=== PATIENT | female | born 1980 | race Hispanic/Latino ===

== ENCOUNTER 2023-02-24 13:31 | Inpatient (IN) | payer OTHER ==
[2023-02-24 14:22] LABS: Bilirubin Negative (Negative); Blood, Urine Trace (Negative); CAUTI Indications for Culture Dysuria,urgency,freq; Clarity Clear (Clear); Glucose, Urine (Dipstick) Normal (Negative); Ketone, Urine Negative (Negative); Leukocyte 75 Leu/uL (Negative); Nitrite Negative (Negative); Protein, Urine (Dipstick) Negative (Neg-Trace); RBC/HPF 0-3 HPF (0-3); Specific Gravity, Urine 1.009 (1.002-1.036); Squamous Epithelial 0-3 HPF (0-3); Urobilinogen Normal mg/dL (Less than 2); WBC/HPF 0-3 HPF (0-3)
[2023-02-24 14:25] LABS: Bacteria/HPF 1+ HPF (None Seen)
[2023-02-24 14:25] LABS: #Eosinphils 0.1 thou/uL (0.0-0.7); #Monocytes 0.4 thou/uL (0.11-0.59); #Neutrophils 13.9 thou/uL (1.40-6.50); %Basophils 0.1 % (0.0-1.0); %Eosinophils 0.7 % (0.0-10.0); %Lymphocytes 5.1 % (21.0-51.0); %Monocytes 2.9 % (0.0-10.0); %Neutrophils 90.7 % (42.0-75.0); Hemoglobin 10.9 g/dL (12.0-16.0); Mean Corpuscular HGB CONC 30.3 g/dL (32.0-36.0); Mean Corpuscular Hemoglobin 21.2 pg (27.0-31.0); Mean Corpuscular Volume 69.9 fl (78.0-98.0); Mean Platelet Volume 10.3 fL (7.4-10.4); Platelet Count 313 10x3/uL (130-400); RBC Distribution Width 17.2 % (11.5-14.5); Red Blood Cell (RBC) Count 5.15 mill/uL (4.20-5.40); White Blood Cell (WBC) Count 15.3 10x3/uL (4.8-10.8)
[2023-02-24 14:27] LABS: Urine Culture Reflex No No
[2023-02-24 14:47] LABS: INR-International Normal Ratio 1.1; PTT 26.3 sec (22.9-36.1); Prothrombin Time 14.1 sec (12.0-14.7); Troponin I Less than 0.010 ng/mL (< 0.028)
[2023-02-24 14:49] LABS: ALT (SGPT) 19 U/L (8-55); AST (SGOT) 16 U/L (5-34); Albumin 4.1 g/dL (3.5-5.0); Alkaline Phosphatase 97 U/L (40-110); Anion Gap 16 mmol/L (10-20); BUN (Urea Nitrogen) 10 mg/dL (7.0-18.7); Bilirubin, Total 0.6 mg/dL (0.2-1.2); Calc. Creatinine Clearance 0 mL/min (70-130); Calcium 9.4 mg/dL (7.8-10.44); Carbon Dioxide 27 mmol/L (22-29); Chloride 101 mmol/L (98-107); Estimated GFR 114; Globulin 3.8 g/dL (2.4-3.5); Glucose 116 mg/dL (70-105); Lipase 6 U/L (8-78); Potassium 3.4 mmol/L (3.5-5.1); Protein, Total 7.9 g/dL (6.0-8.3); Sodium 141 mmol/L (136-145)
[2023-02-24 14:51] LABS: Anisocytosis SLIGHT = 6-15 cells HPF (0-5); CellaVision Operator ID LAB.MJL; Hypochromia SLIGHT = 6-15 cells HPF (0-5); Microcytosis SLIGHT = 6-15 cells HPF (0-5); Ovalocytes SLIGHT = 2-5 cells HPF (0-1); Platelet Adequacy Comment Platelets Normal; Polychromasia SLIGHT = 2-3 cells HPF (0-2); Tear Drops SLIGHT = 2-5 cells HPF (0-1)
[2023-02-24] MEDS ORDERED: Ondansetron ODT 4 MG TAB ONE (15:30)
[2023-02-24] MEDS ORDERED: Acetaminophen 500 MG TAB ONE (15:30)
[2023-02-24] MEDS ORDERED: Iopamidol-370 76% 500 ML MDV (1 ML CHARGE) ONE (15:44)
[2023-02-24] MEDS ORDERED: Morphine 4 MG/ML VIAL ONE ×2 (17:04→20:23)
[2023-02-24] MEDS ORDERED: Ondansetron PF 4 MG/2 ML Vial ONE (17:09)
[2023-02-24] MEDS ORDERED: Ketorolac Tromethamine 30 MG/ML VIAL ONE (20:23)
[2023-02-24 21:45] LABS: Troponin I Less than 0.010 ng/mL (< 0.028)
[2023-02-24 21:52] LABS: SARS-CoV-2 NAA Rapid Test Not Detected (NotDetected)
[2023-02-24] MEDS ORDERED: Cefepime 2 GM VIAL ONE (22:30)
[2023-02-24] MEDS ORDERED: Ibuprofen 200 MG TAB ONE (22:58)
[2023-02-25] MEDS ORDERED: Vancomycin 1 GM/200 ML (FROZEN) BAG ONE (00:06)
[2023-02-25] MEDS ORDERED: Acetaminophen 325 MG TAB PO PRN (00:09)
[2023-02-25 00:14] VITALS: BMI 61.9
[2023-02-25] MEDS ORDERED: Lactated Ringer's 1,000 ML IV SCH (00:15)
[2023-02-25 00:20] LABS: #Eosinphils 0.1 thou/uL (0.0-0.7); #Monocytes 0.5 thou/uL (0.11-0.59); %Basophils 0.1 % (0.0-1.0); %Eosinophils 0.8 % (0.0-10.0); %Lymphocytes 10.8 % (21.0-51.0); %Monocytes 6.3 % (0.0-10.0); %Neutrophils 81.7 % (42.0-75.0); Hematocrit 29.9 % (36.0-47.0); Hemoglobin 9.1 g/dL (12.0-16.0); Mean Corpuscular HGB CONC 30.4 g/dL (32.0-36.0); Mean Corpuscular Hemoglobin 21.5 pg (27.0-31.0); Mean Corpuscular Volume 70.5 fl (78.0-98.0); Mean Platelet Volume 10.1 fL (7.4-10.4); Platelet Count 248 10x3/uL (130-400); RBC Distribution Width 17.6 % (11.5-14.5); Red Blood Cell (RBC) Count 4.24 mill/uL (4.20-5.40); White Blood Cell (WBC) Count 8.6 10x3/uL (4.8-10.8)
[2023-02-25] MEDS ORDERED: Vancomycin 1.5 GRAM/300 ML BAG 1.5 GM in Premix Bag 1 BAG IVPB SCH (01:00)
[2023-02-25] MEDS ORDERED: HYDROcodone/Acetaminophen 5/325 mg Tablet ONE (03:12)
[2023-02-25] MEDS: HYDROcodone/Acetaminophen 5/325 mg Tablet PO PRN ×3 (03:20→14:08)
[2023-02-25 03:27] LABS: Hematocrit 30.2 % (36.0-47.0); Hemoglobin 9.1 g/dL (12.0-16.0); Mean Corpuscular HGB CONC 30.1 g/dL (32.0-36.0); Mean Corpuscular Hemoglobin 21.3 pg (27.0-31.0); Mean Corpuscular Volume 70.7 fl (78.0-98.0); Mean Platelet Volume 10.5 fL (7.4-10.4); Platelet Count 240 10x3/uL (130-400); RBC Distribution Width 17.5 % (11.5-14.5); Red Blood Cell (RBC) Count 4.27 mill/uL (4.20-5.40)
[2023-02-25 03:50] LABS: ALT (SGPT) 22 U/L (8-55); AST (SGOT) 30 U/L (5-34); Albumin 3.4 g/dL (3.5-5.0); Alkaline Phosphatase 87 U/L (40-110); Anion Gap 11 mmol/L (10-20); BUN (Urea Nitrogen) 6 mg/dL (7.0-18.7); Bilirubin, Total 0.9 mg/dL (0.2-1.2); Calc. Creatinine Clearance 340 mL/min (70-130); Calcium 8.1 mg/dL (7.8-10.44); Carbon Dioxide 25 mmol/L (22-29); Chloride 109 mmol/L (98-107); Estimated GFR 118; Globulin 3.1 g/dL (2.4-3.5); Glucose 123 mg/dL (70-105); Potassium 3.1 mmol/L (3.5-5.1); Protein, Total 6.5 g/dL (6.0-8.3); Sodium 142 mmol/L (136-145)
[2023-02-25 03:59] LABS: Lactic Acid 0.9 mmol/L (0.5-2.2); Troponin I Less than 0.010 ng/mL (< 0.028)
[2023-02-25] MEDS: Piperacillin/Tazobactam 3.375 GM in Sodium Chloride 0.9% 100 ML IVPB SCH ×5 (04:51→20:29)
[2023-02-25] MEDS ORDERED: Piperacillin/Tazobactam 4.5 GM in Sodium Chloride 0.9% 100 ML IVPB SCH (06:00)
[2023-02-25] MEDS ORDERED: Piperacillin/Tazobactam 3.375 GM VIAL ONE (06:06)
[2023-02-25 07:12] LABS: Troponin I Less than 0.010 ng/mL (< 0.028)
[2023-02-25] MEDS ORDERED: Electrolyte Replacement Protocol 1 EACH FS SCH (07:30)
[2023-02-25] MEDS ORDERED: Electrolyte Replacement Protocol FS PRN (07:30)
[2023-02-25] MEDS ORDERED: Potassium Chloride 20 MEQ TAB PO SCH (08:00)
[2023-02-25] MEDS ORDERED: VANCOMYCIN 1.75 GM/500 ML BAG 1.75 GM in Premix Bag 1 BAG IVPB SCH (08:00)
[2023-02-25] MEDS: Aspirin 81 mg Enteric Coated Tablet PO SCH (09:53)
[2023-02-25 14:22] LABS: Potassium 3.3 mmol/L (3.5-5.1)
[2023-02-25] MEDS ORDERED: Ketorolac Tromethamine 30 MG/ML VIAL IVP SCH (15:45)
[2023-02-25 18:42] LABS: Actual Bicarbonate (HCO3v) 23.9 mEq/L (22-28); Base Excess 2.4 mEq/L (-2.0 to +3.0); Calcium, Ionized (venous) 0.95 mmol/L (1.16-1.32); Chloride (VBG) 109 mmol/L (98-106); Hematocrit-VBG 29 % (36.0-47.0); Potassium (VBG) 3.41 mmol/L (3.70-5.30); Sodium 141.3 mmol/L (133-146); pH (venous) 7.569 (7.32-7.43)
[2023-02-25 19:07] LABS: Anion Gap 13 mmol/L (10-20); BUN (Urea Nitrogen) 6 mg/dL (7.0-18.7); Calc. Creatinine Clearance 353 mL/min (70-130); Calcium 8.3 mg/dL (7.8-10.44); Carbon Dioxide 21 mmol/L (22-29); Chloride 110 mmol/L (98-107); Estimated GFR 119; Glucose 101 mg/dL (70-105); Potassium 3.4 mmol/L (3.5-5.1); Sodium 141 mmol/L (136-145)
[2023-02-26] MEDS: HYDROcodone/Acetaminophen 5/325 mg Tablet PO PRN ×4 (00:58→22:44)
[2023-02-26] MEDS: Piperacillin/Tazobactam 3.375 GM in Sodium Chloride 0.9% 100 ML IVPB SCH ×3 (04:41→19:28)
[2023-02-26 05:18] LABS: #Eosinphils 0.4 thou/uL (0.0-0.7); #Monocytes 0.5 thou/uL (0.11-0.59); #Neutrophils 3.7 thou/uL (1.40-6.50); %Basophils 0.3 % (0.0-1.0); %Eosinophils 5.9 % (0.0-10.0); %Lymphocytes 25.2 % (21.0-51.0); %Monocytes 7.3 % (0.0-10.0); %Neutrophils 60.6 % (42.0-75.0); Hematocrit 30.5 % (36.0-47.0); Hemoglobin 8.9 g/dL (12.0-16.0); Mean Corpuscular HGB CONC 29.2 g/dL (32.0-36.0); Mean Corpuscular Hemoglobin 21.1 pg (27.0-31.0); Mean Corpuscular Volume 72.3 fl (78.0-98.0); Mean Platelet Volume 10.2 fL (7.4-10.4); Platelet Count 235 10x3/uL (130-400); RBC Distribution Width 18.1 % (11.5-14.5); Red Blood Cell (RBC) Count 4.22 mill/uL (4.20-5.40); White Blood Cell (WBC) Count 6.1 10x3/uL (4.8-10.8)
[2023-02-26 05:30] LABS: Hemoglobin A1c 5.7 % (4.0-6.0)
[2023-02-26 05:32] LABS: ALT (SGPT) 28 U/L (8-55); AST (SGOT) 29 U/L (5-34); Albumin 3.5 g/dL (3.5-5.0); Alkaline Phosphatase 90 U/L (40-110); Bilirubin, Direct 0.2 mg/dL (0.1-0.3); Bilirubin, Total 0.5 mg/dL (0.2-1.2); Protein, Total 6.5 g/dL (6.0-8.3)
[2023-02-26 05:33] LABS: Anion Gap 13 mmol/L (10-20); BUN (Urea Nitrogen) 5 mg/dL (7.0-18.7); Calc. Creatinine Clearance 306 mL/min (70-130); Calcium 8.4 mg/dL (7.8-10.44); Carbon Dioxide 26 mmol/L (22-29); Chloride 106 mmol/L (98-107); Estimated GFR 115; Glucose 106 mg/dL (70-105); Iron 33 ug/dL (50-170); Iron Binding Capacity, Total 336 mcg/dL (265-497); Magnesium 2.1 mg/dL (1.6-2.6); Potassium 3.3 mmol/L (3.5-5.1); Sodium 142 mmol/L (136-145)
[2023-02-26 05:58] LABS: Ferritin 44.59 ng/mL (10-291); Thyroid Stimulating Hormone 1.6988 uIU/mL (0.35-4.94)
[2023-02-26] MEDS ORDERED: Ondansetron PF 4 MG/2 ML Vial IVP SCH (09:30)
[2023-02-26] MEDS: Aspirin 81 mg Enteric Coated Tablet PO SCH ×2 (09:48→12:55)
[2023-02-26] MEDS: Potassium Chloride 20 MEQ in Premix Bag 1 BAG IVPB SCH ×2 (10:06→11:43)
[2023-02-26] MEDS ORDERED: Potassium Chloride 20 MEQ TAB PO SCH (11:15)
[2023-02-26] MEDS: Butalbital 50 MG/Aspirin 325 MG/Caffeine 40 MG CAPSULE PO PRN ×2 (12:54→20:34)
[2023-02-26 19:35] LABS: BHCG - Serum Negative (NEGATIVE); Pregs Control Background? CLEAR/WHITE (CLR/WHITE); Pregs Control Bar Appear? YES (CONTROL BAR)
[2023-02-26 19:40] LABS: Potassium 3.9 mmol/L (3.5-5.1)
[2023-02-26] MEDS: Ondansetron PF 4 MG/2 ML Vial IVP PRN (20:34)
[2023-02-26 23:16] LABS: Campy jejuni + coli by PCR Negative (Negative); STEC Shiga Toxin 1+2 Negative (Negative); Salmonella spp. by PCR Negative (Negative); Shigella spp + EIEC by PCR Negative (Negative)
[2023-02-27] MEDS: Butalbital 50 MG/Aspirin 325 MG/Caffeine 40 MG CAPSULE PO PRN (02:48)
[2023-02-27] MEDS: Ondansetron PF 4 MG/2 ML Vial IVP PRN (02:48)
[2023-02-27] MEDS: Piperacillin/Tazobactam 3.375 GM in Sodium Chloride 0.9% 100 ML IVPB SCH ×3 (03:01→20:52)
[2023-02-27] MEDS: HYDROcodone/Acetaminophen 5/325 mg Tablet PO PRN ×3 (04:16→22:20)
[2023-02-27 05:37] LABS: #Eosinphils 0.5 thou/uL (0.0-0.7); #Monocytes 0.6 thou/uL (0.11-0.59); #Neutrophils 4.2 thou/uL (1.40-6.50); %Basophils 0.3 % (0.0-1.0); %Eosinophils 6.3 % (0.0-10.0); %Lymphocytes 26.6 % (21.0-51.0); %Monocytes 7.9 % (0.0-10.0); %Neutrophils 58.2 % (42.0-75.0); Hemoglobin 9.3 g/dL (12.0-16.0); Mean Corpuscular HGB CONC 29.1 g/dL (32.0-36.0); Mean Corpuscular Hemoglobin 21.3 pg (27.0-31.0); Mean Corpuscular Volume 73.4 fl (78.0-98.0); Platelet Count 245 10x3/uL (130-400); RBC Distribution Width 17.9 % (11.5-14.5); Red Blood Cell (RBC) Count 4.36 mill/uL (4.20-5.40); White Blood Cell (WBC) Count 7.2 10x3/uL (4.8-10.8)
[2023-02-27 06:05] LABS: Anion Gap 12 mmol/L (10-20); BUN (Urea Nitrogen) 6 mg/dL (7.0-18.7); Calc. Creatinine Clearance 311 mL/min (70-130); Calcium 8.6 mg/dL (7.8-10.44); Carbon Dioxide 26 mmol/L (22-29); Chloride 108 mmol/L (98-107); Estimated GFR 115; Glucose 121 mg/dL (70-105); Magnesium 2.1 mg/dL (1.6-2.6); Potassium 3.4 mmol/L (3.5-5.1); Sodium 143 mmol/L (136-145)
[2023-02-27] MEDS ORDERED: Potassium Chloride 20 MEQ TAB PO SCH (08:00)
[2023-02-27] MEDS: Aspirin 81 mg Enteric Coated Tablet PO SCH (08:13)
[2023-02-28] MEDS: HYDROcodone/Acetaminophen 5/325 mg Tablet PO PRN ×4 (03:05→22:38)
[2023-02-28] MEDS: Piperacillin/Tazobactam 3.375 GM in Sodium Chloride 0.9% 100 ML IVPB SCH ×2 (04:18→12:19)
[2023-02-28 05:26] LABS: #Eosinphils 0.4 thou/uL (0.0-0.7); #Monocytes 0.5 thou/uL (0.11-0.59); #Neutrophils 4.2 thou/uL (1.40-6.50); %Basophils 0.3 % (0.0-1.0); %Eosinophils 5.1 % (0.0-10.0); %Monocytes 6.4 % (0.0-10.0); %Neutrophils 59.5 % (42.0-75.0); Hemoglobin 9.3 g/dL (12.0-16.0); Mean Corpuscular HGB CONC 29.1 g/dL (32.0-36.0); Mean Corpuscular Hemoglobin 20.9 pg (27.0-31.0); Mean Corpuscular Volume 71.9 fl (78.0-98.0); Mean Platelet Volume 10.4 fL (7.4-10.4); Platelet Count 292 10x3/uL (130-400); RBC Distribution Width 18.2 % (11.5-14.5); Red Blood Cell (RBC) Count 4.45 mill/uL (4.20-5.40)
[2023-02-28 05:52] LABS: Anion Gap 12 mmol/L (10-20); BUN (Urea Nitrogen) 5 mg/dL (7.0-18.7); Calc. Creatinine Clearance 328 mL/min (70-130); Calcium 8.6 mg/dL (7.8-10.44); Carbon Dioxide 27 mmol/L (22-29); Chloride 105 mmol/L (98-107); Estimated GFR 117; Glucose 98 mg/dL (70-105); Magnesium 2.1 mg/dL (1.6-2.6); Potassium 3.6 mmol/L (3.5-5.1); Sodium 140 mmol/L (136-145)
[2023-02-28] MEDS ORDERED: Regadenoson 0.4 MG/5 ML SYRINGE ONE (08:31)
[2023-02-28] MEDS: Aspirin 81 mg Enteric Coated Tablet PO SCH (12:21)
[2023-02-28] MEDS: Ondansetron PF 4 MG/2 ML Vial IVP PRN (12:22)
[2023-02-28] MEDS ORDERED: Promethazine HCl 25 MG in Sodium Chloride 0.9% 50 ML IVPB PRN (17:55)
[2023-02-28] MEDS ORDERED: Lidocaine 2% Viscous Solution 10 ML, Aluminum & Magnesium Hydroxide 30 ML SSW SCH (18:00)
[2023-03-01] MEDS: HYDROcodone/Acetaminophen 5/325 mg Tablet PO PRN ×4 (04:08→20:48)
[2023-03-01 05:41] LABS: #Eosinphils 0.3 thou/uL (0.0-0.7); #Monocytes 0.4 thou/uL (0.11-0.59); #Neutrophils 5.1 thou/uL (1.40-6.50); %Basophils 0.3 % (0.0-1.0); %Eosinophils 3.4 % (0.0-10.0); %Lymphocytes 26.9 % (21.0-51.0); %Monocytes 5.3 % (0.0-10.0); %Neutrophils 63.7 % (42.0-75.0); Hematocrit 33.9 % (36.0-47.0); Mean Corpuscular HGB CONC 29.5 g/dL (32.0-36.0); Mean Corpuscular Hemoglobin 21.1 pg (27.0-31.0); Mean Corpuscular Volume 71.7 fl (78.0-98.0); Mean Platelet Volume 10.1 fL (7.4-10.4); Platelet Count 318 10x3/uL (130-400); RBC Distribution Width 18.5 % (11.5-14.5); Red Blood Cell (RBC) Count 4.73 mill/uL (4.20-5.40)
[2023-03-01 06:49] LABS: Anion Gap 13 mmol/L (10-20); BUN (Urea Nitrogen) 6 mg/dL (7.0-18.7); Calc. Creatinine Clearance 301 mL/min (70-130); Calcium 8.8 mg/dL (7.8-10.44); Carbon Dioxide 26 mmol/L (22-29); Chloride 106 mmol/L (98-107); Estimated GFR 114; Glucose 95 mg/dL (70-105); Magnesium 2.2 mg/dL (1.6-2.6); Potassium 3.7 mmol/L (3.5-5.1); Sodium 141 mmol/L (136-145)
[2023-03-01 08:08] LABS: CellaVision Operator ID LAB.GE; Giant Platelets 0.9 % (0-5); Large Platelets 2.8 % (0-5); Microcytosis SLIGHT = 6-15 cells HPF (0-5); Platelet Adequacy Comment Platelets Normal; Polychromasia SLIGHT = 2-3 cells HPF (0-2)
[2023-03-01] MEDS: Aspirin 81 mg Enteric Coated Tablet PO SCH (09:17)
[2023-03-01] MEDS: Ondansetron PF 4 MG/2 ML Vial IVP PRN (11:16)
[2023-03-01] MEDS: Pantoprazole 40 MG VIAL IVP SCH (20:48)
[2023-03-02] MEDS: HYDROcodone/Acetaminophen 5/325 mg Tablet PO PRN ×2 (03:59→12:52)
[2023-03-02 05:06] LABS: #Eosinphils 0.3 thou/uL (0.0-0.7); #Monocytes 0.4 thou/uL (0.11-0.59); #Neutrophils 5.2 thou/uL (1.40-6.50); %Basophils 0.2 % (0.0-1.0); %Eosinophils 3.2 % (0.0-10.0); %Lymphocytes 29.9 % (21.0-51.0); %Monocytes 4.9 % (0.0-10.0); %Neutrophils 61.4 % (42.0-75.0); Hematocrit 32.8 % (36.0-47.0); Hemoglobin 9.8 g/dL (12.0-16.0); Mean Corpuscular HGB CONC 29.9 g/dL (32.0-36.0); Mean Corpuscular Hemoglobin 21.4 pg (27.0-31.0); Mean Corpuscular Volume 71.8 fl (78.0-98.0); Mean Platelet Volume 10.1 fL (7.4-10.4); Platelet Count 320 10x3/uL (130-400); RBC Distribution Width 17.9 % (11.5-14.5); Red Blood Cell (RBC) Count 4.57 mill/uL (4.20-5.40); White Blood Cell (WBC) Count 8.5 10x3/uL (4.8-10.8)
[2023-03-02 05:40] LABS: Anion Gap 15 mmol/L (10-20); BUN (Urea Nitrogen) 6 mg/dL (7.0-18.7); Calc. Creatinine Clearance 311 mL/min (70-130); Calcium 8.6 mg/dL (7.8-10.44); Carbon Dioxide 25 mmol/L (22-29); Chloride 105 mmol/L (98-107); Estimated GFR 115; Glucose 105 mg/dL (70-105); Magnesium 2.1 mg/dL (1.6-2.6); Potassium 3.6 mmol/L (3.5-5.1); Sodium 141 mmol/L (136-145)
[2023-03-02] MEDS: Pantoprazole 40 MG VIAL IVP SCH ×2 (09:05→20:22)
[2023-03-02] MEDS: Aspirin 81 mg Enteric Coated Tablet PO SCH (09:06)
[2023-03-02] MEDS ORDERED: Lidocaine 1% PF 5 ML VIAL ONE (10:40)
[2023-03-02] MEDS ORDERED: PROPOFOL 200 MG/20 ML VIAL ONE (10:40)
[2023-03-02] MEDS ORDERED: Iopamidol 370 76% 100 ML VIAL ONE (11:12)
[2023-03-03] MEDS: HYDROcodone/Acetaminophen 5/325 mg Tablet PO PRN ×3 (04:01→20:13)
[2023-03-03 05:28] LABS: #Eosinphils 0.2 thou/uL (0.0-0.7); #Monocytes 0.4 thou/uL (0.11-0.59); #Neutrophils 6.4 thou/uL (1.40-6.50); %Basophils 0.3 % (0.0-1.0); %Eosinophils 2.5 % (0.0-10.0); %Lymphocytes 24.6 % (21.0-51.0); %Monocytes 3.9 % (0.0-10.0); %Neutrophils 68.3 % (42.0-75.0); Hemoglobin 10.3 g/dL (12.0-16.0); Mean Corpuscular HGB CONC 29.4 g/dL (32.0-36.0); Mean Corpuscular Hemoglobin 21.4 pg (27.0-31.0); Mean Corpuscular Volume 72.8 fl (78.0-98.0); Platelet Count 339 10x3/uL (130-400); RBC Distribution Width 18.2 % (11.5-14.5); Red Blood Cell (RBC) Count 4.81 mill/uL (4.20-5.40); White Blood Cell (WBC) Count 9.4 10x3/uL (4.8-10.8)
[2023-03-03 06:08] LABS: Anion Gap 16 mmol/L (10-20); BUN (Urea Nitrogen) 5 mg/dL (7.0-18.7); Calc. Creatinine Clearance 340 mL/min (70-130); Carbon Dioxide 23 mmol/L (22-29); Chloride 105 mmol/L (98-107); Estimated GFR 118; Glucose 100 mg/dL (70-105); Potassium 3.6 mmol/L (3.5-5.1); Sodium 140 mmol/L (136-145)
[2023-03-03 07:38] LABS: Anisocytosis SLIGHT = 6-15 cells HPF (0-5); CellaVision Operator ID lab.dlt; Microcytosis SLIGHT = 6-15 cells HPF (0-5); Ovalocytes SLIGHT = 2-5 cells HPF (0-1); Platelet Adequacy Comment Platelets Normal; Poikilocytosis SLIGHT = 6-15 cells HPF (0-5); Polychromasia SLIGHT = 2-3 cells HPF (0-2)
[2023-03-03] MEDS ORDERED: Magnesium 2 GM/50 ML(in water) 2 GM in Premix Bag 1 BAG IVPB SCH (08:00)
[2023-03-03] MEDS: Pantoprazole 40 MG VIAL IVP SCH ×2 (08:52→20:13)
[2023-03-03] MEDS: Aspirin 81 mg Enteric Coated Tablet PO SCH (08:52)
[2023-03-04] MEDS: HYDROcodone/Acetaminophen 5/325 mg Tablet PO PRN ×3 (01:21→21:08)
[2023-03-04 05:09] LABS: #Eosinphils 0.3 thou/uL (0.0-0.7); #Monocytes 0.6 thou/uL (0.11-0.59); #Neutrophils 7.3 thou/uL (1.40-6.50); %Basophils 0.3 % (0.0-1.0); %Eosinophils 2.4 % (0.0-10.0); %Monocytes 5.1 % (0.0-10.0); %Neutrophils 67.7 % (42.0-75.0); Hematocrit 34.5 % (36.0-47.0); Hemoglobin 10.1 g/dL (12.0-16.0); Mean Corpuscular HGB CONC 29.3 g/dL (32.0-36.0); Mean Corpuscular Hemoglobin 21.2 pg (27.0-31.0); Mean Platelet Volume 10.1 fL (7.4-10.4); Platelet Count 366 10x3/uL (130-400); RBC Distribution Width 18.1 % (11.5-14.5); Red Blood Cell (RBC) Count 4.76 mill/uL (4.20-5.40); White Blood Cell (WBC) Count 10.7 10x3/uL (4.8-10.8)
[2023-03-04 05:32] LABS: Anion Gap 17 mmol/L (10-20); BUN (Urea Nitrogen) 8 mg/dL (7.0-18.7); Calc. Creatinine Clearance 274 mL/min (70-130); Calcium 9.1 mg/dL (7.8-10.44); Carbon Dioxide 24 mmol/L (22-29); Chloride 105 mmol/L (98-107); Estimated GFR 112; Glucose 101 mg/dL (70-105); Magnesium 2.1 mg/dL (1.6-2.6); Sodium 142 mmol/L (136-145)
[2023-03-04 05:42] LABS: Mean Corpuscular Volume 72.5 fl (78.0-98.0)
[2023-03-04] MEDS: Pantoprazole 40 MG VIAL IVP SCH ×2 (08:58→21:10)
[2023-03-04] MEDS: Aspirin 81 mg Enteric Coated Tablet PO SCH (08:58)
[2023-03-04] MEDS ORDERED: Polyethylene Glycol 3350 17 GM Packet PO SCH (09:30)
[2023-03-04] MEDS ORDERED: Piperacillin/Tazobactam 3.375 GM in Sodium Chloride 0.9% 100 ML IVPB SCH ×2 (12:45→14:00)
[2023-03-04] MEDS: Ondansetron PF 4 MG/2 ML Vial IVP PRN (14:34)
[2023-03-04] MEDS: Piperacillin/Tazobactam 3.375 GM in Sodium Chloride 0.9% 100 ML IVPB SCH (17:53)
[2023-03-04] MEDS: Senokot S 8.6-50 MG TAB PO SCH (21:08)
[2023-03-05] MEDS: Piperacillin/Tazobactam 3.375 GM in Sodium Chloride 0.9% 100 ML IVPB SCH ×3 (01:58→18:36)
[2023-03-05 06:01] LABS: #Eosinphils 0.3 thou/uL (0.0-0.7); #Monocytes 0.4 thou/uL (0.11-0.59); %Basophils 0.3 % (0.0-1.0); %Eosinophils 3.4 % (0.0-10.0); %Lymphocytes 22.2 % (21.0-51.0); %Monocytes 4.5 % (0.0-10.0); %Neutrophils 69.1 % (42.0-75.0); Hemoglobin 9.8 g/dL (12.0-16.0); Mean Corpuscular HGB CONC 29.7 g/dL (32.0-36.0); Mean Corpuscular Hemoglobin 21.4 pg (27.0-31.0); Mean Corpuscular Volume 72.1 fl (78.0-98.0); Mean Platelet Volume 10.1 fL (7.4-10.4); Platelet Count 328 10x3/uL (130-400); RBC Distribution Width 18.1 % (11.5-14.5); Red Blood Cell (RBC) Count 4.58 mill/uL (4.20-5.40); White Blood Cell (WBC) Count 8.6 10x3/uL (4.8-10.8)
[2023-03-05 06:32] LABS: ALT (SGPT) 23 U/L (8-55); AST (SGOT) 13 U/L (5-34); Albumin 3.6 g/dL (3.5-5.0); Alkaline Phosphatase 78 U/L (40-110); Anion Gap 13 mmol/L (10-20); BUN (Urea Nitrogen) 8 mg/dL (7.0-18.7); Bilirubin, Total 0.3 mg/dL (0.2-1.2); CRP (Inflammatory) 1.71 mg/dL (= or < 0.5); Calc. Creatinine Clearance 311 mL/min (70-130); Calcium 8.9 mg/dL (7.8-10.44); Carbon Dioxide 25 mmol/L (22-29); Chloride 105 mmol/L (98-107); Estimated GFR 115; Globulin 3.1 g/dL (2.4-3.5); Glucose 105 mg/dL (70-105); Magnesium 2.1 mg/dL (1.6-2.6); Potassium 3.7 mmol/L (3.5-5.1); Protein, Total 6.7 g/dL (6.0-8.3); Sodium 139 mmol/L (136-145)
[2023-03-05 07:17] LABS: CellaVision Operator ID LAB.CMB; Large Platelets 2.9 % (0-5); Microcytosis SLIGHT = 6-15 cells HPF (0-5); Ovalocytes SLIGHT = 2-5 cells HPF (0-1); Platelet Adequacy Comment Platelets Normal
[2023-03-05] MEDS: HYDROcodone/Acetaminophen 5/325 mg Tablet PO PRN ×2 (08:34→20:46)
[2023-03-05] MEDS: Aspirin 81 mg Enteric Coated Tablet PO SCH (08:35)
[2023-03-05] MEDS: Polyethylene Glycol 3350 17 GM Packet PO SCH (08:35)
[2023-03-05] MEDS: Senokot S 8.6-50 MG TAB PO SCH ×2 (08:35→20:46)
[2023-03-05] MEDS: Pantoprazole 40 MG VIAL IVP SCH ×2 (08:35→20:46)
[2023-03-06] MEDS: HYDROcodone/Acetaminophen 5/325 mg Tablet PO PRN ×3 (03:09→20:37)
[2023-03-06] MEDS: Piperacillin/Tazobactam 3.375 GM in Sodium Chloride 0.9% 100 ML IVPB SCH ×3 (03:10→18:19)
[2023-03-06 04:32] LABS: #Eosinphils 0.3 thou/uL (0.0-0.7); #Monocytes 0.6 thou/uL (0.11-0.59); #Neutrophils 6.7 thou/uL (1.40-6.50); %Basophils 0.2 % (0.0-1.0); %Eosinophils 3.2 % (0.0-10.0); %Lymphocytes 22.9 % (21.0-51.0); %Monocytes 5.6 % (0.0-10.0); %Neutrophils 67.6 % (42.0-75.0); Hemoglobin 10.3 g/dL (12.0-16.0); Mean Corpuscular HGB CONC 30.3 g/dL (32.0-36.0); Mean Corpuscular Hemoglobin 21.7 pg (27.0-31.0); Mean Corpuscular Volume 71.7 fl (78.0-98.0); Platelet Count 381 10x3/uL (130-400); RBC Distribution Width 17.9 % (11.5-14.5); Red Blood Cell (RBC) Count 4.74 mill/uL (4.20-5.40)
[2023-03-06 04:59] LABS: ALT (SGPT) 20 U/L (8-55); AST (SGOT) 14 U/L (5-34); Albumin 3.7 g/dL (3.5-5.0); Alkaline Phosphatase 80 U/L (40-110); Anion Gap 17 mmol/L (10-20); BUN (Urea Nitrogen) 9 mg/dL (7.0-18.7); Bilirubin, Total 0.4 mg/dL (0.2-1.2); Calc. Creatinine Clearance 296 mL/min (70-130); Carbon Dioxide 23 mmol/L (22-29); Chloride 106 mmol/L (98-107); Estimated GFR 114; Globulin 3.5 g/dL (2.4-3.5); Glucose 93 mg/dL (70-105); Magnesium 2.1 mg/dL (1.6-2.6); Potassium 4.2 mmol/L (3.5-5.1); Protein, Total 7.2 g/dL (6.0-8.3); Sodium 142 mmol/L (136-145)
[2023-03-06] MEDS ORDERED: Bisacodyl 10 MG SUPP PR PRN (09:31)
[2023-03-06] MEDS ORDERED: Milk Of Magnesia 30 ML UDCUP PO SCH (09:45)
[2023-03-06] MEDS ORDERED: Bisacodyl 5 MG TAB PO SCH (09:45)
[2023-03-06] MEDS: Aspirin 81 mg Enteric Coated Tablet PO SCH (09:46)
[2023-03-06] MEDS: Pantoprazole 40 MG VIAL IVP SCH ×2 (09:47→20:37)
[2023-03-06] MEDS: Polyethylene Glycol 3350 17 GM Packet PO SCH (09:47)
[2023-03-06] MEDS: Senokot S 8.6-50 MG TAB PO SCH ×2 (09:47→20:37)
[2023-03-07] MEDS: HYDROcodone/Acetaminophen 5/325 mg Tablet PO PRN ×4 (02:07→20:01)
[2023-03-07] MEDS: Piperacillin/Tazobactam 3.375 GM in Sodium Chloride 0.9% 100 ML IVPB SCH ×3 (03:27→18:04)
[2023-03-07 05:38] LABS: #Eosinphils 0.4 thou/uL (0.0-0.7); #Monocytes 0.5 thou/uL (0.11-0.59); #Neutrophils 6.2 thou/uL (1.40-6.50); %Basophils 0.2 % (0.0-1.0); %Eosinophils 4.1 % (0.0-10.0); %Lymphocytes 24.9 % (21.0-51.0); %Monocytes 5.2 % (0.0-10.0); %Neutrophils 65.2 % (42.0-75.0); Hematocrit 33.2 % (36.0-47.0); Hemoglobin 9.9 g/dL (12.0-16.0); Mean Corpuscular HGB CONC 29.8 g/dL (32.0-36.0); Mean Corpuscular Hemoglobin 21.4 pg (27.0-31.0); Mean Corpuscular Volume 71.9 fl (78.0-98.0); Mean Platelet Volume 10.5 fL (7.4-10.4); Platelet Count 382 10x3/uL (130-400); RBC Distribution Width 17.8 % (11.5-14.5); Red Blood Cell (RBC) Count 4.62 mill/uL (4.20-5.40); White Blood Cell (WBC) Count 9.5 10x3/uL (4.8-10.8)
[2023-03-07 06:11] LABS: ALT (SGPT) 17 U/L (8-55); AST (SGOT) 11 U/L (5-34); Albumin 3.8 g/dL (3.5-5.0); Alkaline Phosphatase 85 U/L (40-110); Anion Gap 16 mmol/L (10-20); BUN (Urea Nitrogen) 8 mg/dL (7.0-18.7); Bilirubin, Total 0.4 mg/dL (0.2-1.2); Calc. Creatinine Clearance 283 mL/min (70-130); Calcium 8.9 mg/dL (7.8-10.44); Carbon Dioxide 24 mmol/L (22-29); Chloride 105 mmol/L (98-107); Estimated GFR 113; Globulin 3.4 g/dL (2.4-3.5); Glucose 94 mg/dL (70-105); Magnesium 2.3 mg/dL (1.6-2.6); Potassium 4.1 mmol/L (3.5-5.1); Protein, Total 7.2 g/dL (6.0-8.3); Sodium 141 mmol/L (136-145)
[2023-03-07 07:41] LABS: CellaVision Operator ID LAB.GE; Hypochromia SLIGHT = 6-15 cells HPF (0-5); Microcytosis MODERATE=15-30 cells HPF (0-5); Ovalocytes SLIGHT = 2-5 cells HPF (0-1); Platelet Adequacy Comment Platelets Normal; Polychromasia MODERATE = 3-4 cells HPF (0-2)
[2023-03-07] MEDS: Aspirin 81 mg Enteric Coated Tablet PO SCH (08:12)
[2023-03-07] MEDS: Polyethylene Glycol 3350 17 GM Packet PO SCH (08:12)
[2023-03-07] MEDS: Ibuprofen 600 MG TAB PO PRN (08:12)
[2023-03-07] MEDS: Senokot S 8.6-50 MG TAB PO SCH ×2 (08:12→20:01)
[2023-03-07] MEDS: Pantoprazole 40 MG VIAL IVP SCH ×2 (08:12→20:00)
[2023-03-08] MEDS: HYDROcodone/Acetaminophen 5/325 mg Tablet PO PRN (02:15)
[2023-03-08] MEDS: Piperacillin/Tazobactam 3.375 GM in Sodium Chloride 0.9% 100 ML IVPB SCH ×3 (02:15→17:48)
[2023-03-08] MEDS: Aspirin 81 mg Enteric Coated Tablet PO SCH (10:28)
[2023-03-08] MEDS: Senokot S 8.6-50 MG TAB PO SCH ×2 (10:29→20:24)
[2023-03-08] MEDS: Polyethylene Glycol 3350 17 GM Packet PO SCH (10:29)
[2023-03-08] MEDS: Pantoprazole 40 MG VIAL IVP SCH (10:29)
[2023-03-08] MEDS: Gabapentin 100 MG CAP PO SCH ×2 (14:41→20:24)
[2023-03-08] MEDS ORDERED: Iopamidol-370 76% 500 ML MDV (1 ML CHARGE) ONE (14:57)
[2023-03-08] MEDS: traMADol HCl 50 MG TAB PO PRN (17:49)
[2023-03-08] MEDS: Ondansetron PF 4 MG/2 ML Vial IVP PRN ×2 (17:49→20:23)
[2023-03-08] MEDS: Ibuprofen 600 MG TAB PO PRN (20:23)
[2023-03-09] MEDS: Piperacillin/Tazobactam 3.375 GM in Sodium Chloride 0.9% 100 ML IVPB SCH ×3 (02:26→18:10)
[2023-03-09] MEDS: Acetaminophen 500 MG TAB PO PRN (02:30)
[2023-03-09] MEDS: traMADol HCl 50 MG TAB PO PRN ×2 (02:30→18:10)
[2023-03-09 04:09] LABS: #Eosinphils 0.3 thou/uL (0.0-0.7); #Monocytes 0.6 thou/uL (0.11-0.59); #Neutrophils 5.9 thou/uL (1.40-6.50); %Basophils 0.2 % (0.0-1.0); %Eosinophils 2.8 % (0.0-10.0); %Lymphocytes 23.7 % (21.0-51.0); %Monocytes 6.2 % (0.0-10.0); %Neutrophils 66.5 % (42.0-75.0); Hematocrit 31.7 % (36.0-47.0); Hemoglobin 9.5 g/dL (12.0-16.0); Mean Corpuscular Hemoglobin 21.4 pg (27.0-31.0); Mean Corpuscular Volume 71.6 fl (78.0-98.0); Mean Platelet Volume 11.1 fL (7.4-10.4); Platelet Count 311 10x3/uL (130-400); RBC Distribution Width 17.7 % (11.5-14.5); Red Blood Cell (RBC) Count 4.43 mill/uL (4.20-5.40); White Blood Cell (WBC) Count 8.9 10x3/uL (4.8-10.8)
[2023-03-09 04:37] LABS: ALT (SGPT) 14 U/L (8-55); AST (SGOT) 11 U/L (5-34); Albumin 3.5 g/dL (3.5-5.0); Alkaline Phosphatase 74 U/L (40-110); Anion Gap 13 mmol/L (10-20); BUN (Urea Nitrogen) 9 mg/dL (7.0-18.7); Bilirubin, Total 0.4 mg/dL (0.2-1.2); Calc. Creatinine Clearance 278 mL/min (70-130); Calcium 8.7 mg/dL (7.8-10.44); Carbon Dioxide 25 mmol/L (22-29); Chloride 104 mmol/L (98-107); Estimated GFR 112; Globulin 3.1 g/dL (2.4-3.5); Glucose 101 mg/dL (70-105); Potassium 3.8 mmol/L (3.5-5.1); Protein, Total 6.6 g/dL (6.0-8.3); Sodium 138 mmol/L (136-145)
[2023-03-09 06:38] LABS: Anisocytosis SLIGHT = 6-15 cells HPF (0-5); CellaVision Operator ID LAB.JMM; Elliptocytes SLIGHT = 2-5 cells HPF (0-1); Platelet Adequacy Comment Platelets Normal; Polychromasia SLIGHT = 2-3 cells HPF (0-2)
[2023-03-09] MEDS: Gabapentin 100 MG CAP PO SCH ×3 (08:52→20:34)
[2023-03-09] MEDS: Butalbital 50 MG/Aspirin 325 MG/Caffeine 40 MG CAPSULE PO PRN (08:53)
[2023-03-09] MEDS: Polyethylene Glycol 3350 17 GM Packet PO SCH ×2 (08:59→20:35)
[2023-03-09] MEDS: Senokot S 8.6-50 MG TAB PO SCH ×2 (09:00→20:35)
[2023-03-09] MEDS: Ondansetron PF 4 MG/2 ML Vial IVP PRN (20:39)
[2023-03-09] MEDS: Morphine 4 MG/ML VIAL SLOW IVP PRN (20:40)
[2023-03-10] MEDS: Piperacillin/Tazobactam 3.375 GM in Sodium Chloride 0.9% 100 ML IVPB SCH ×3 (03:03→17:41)
[2023-03-10] MEDS: Polyethylene Glycol 3350 17 GM Packet PO SCH ×2 (08:03→20:05)
[2023-03-10] MEDS: Ibuprofen 600 MG TAB PO PRN ×2 (08:05→13:58)
[2023-03-10] MEDS: traMADol HCl 50 MG TAB PO PRN ×2 (08:05→20:10)
[2023-03-10] MEDS: Gabapentin 100 MG CAP PO SCH (08:05)
[2023-03-10] MEDS: Acetaminophen 500 MG TAB PO PRN ×2 (08:06→13:57)
[2023-03-10] MEDS: Senokot S 8.6-50 MG TAB PO SCH ×2 (08:06→20:04)
[2023-03-10] MEDS: Morphine 4 MG/ML VIAL SLOW IVP PRN (10:11)
[2023-03-10] MEDS ORDERED: Gabapentin 100 MG CAP PO SCH ×2 (10:56→11:15)
[2023-03-10] MEDS ORDERED: Morphine 4 MG/ML VIAL SLOW IVP PRN (10:56)
[2023-03-10] MEDS: Gabapentin 300 MG CAP PO SCH ×2 (13:57→20:04)
[2023-03-10] MEDS: Ondansetron PF 4 MG/2 ML Vial IVP PRN (20:10)
[2023-03-11] MEDS: Piperacillin/Tazobactam 3.375 GM in Sodium Chloride 0.9% 100 ML IVPB SCH ×3 (00:52→18:39)
[2023-03-11] MEDS ORDERED: Morphine 4 MG/ML VIAL SLOW IVP PRN (08:28)
[2023-03-11] MEDS ORDERED: Bisacodyl 10 MG SUPP PR PRN (09:09)
[2023-03-11] MEDS ORDERED: Bisacodyl 10 MG SUPP PR SCH ×2 (09:15→17:15)
[2023-03-11] MEDS: Polyethylene Glycol 3350 17 GM Packet PO SCH ×2 (09:17→19:53)
[2023-03-11] MEDS: Gabapentin 300 MG CAP PO SCH ×3 (09:18→19:53)
[2023-03-11] MEDS: Ibuprofen 600 MG TAB PO PRN ×2 (09:18→16:08)
[2023-03-11] MEDS: traMADol HCl 50 MG TAB PO PRN (09:18)
[2023-03-11] MEDS: Senokot S 8.6-50 MG TAB PO SCH ×2 (09:18→19:54)
[2023-03-11] MEDS: Acetaminophen 500 MG TAB PO PRN ×2 (09:18→16:08)
[2023-03-11] MEDS: Bisacodyl 10 MG SUPP PR SCH (18:39)
[2023-03-12] MEDS: Piperacillin/Tazobactam 3.375 GM in Sodium Chloride 0.9% 100 ML IVPB SCH ×3 (01:22→18:35)
[2023-03-12] MEDS: Bisacodyl 10 MG SUPP PR SCH ×3 (01:22→18:35)
[2023-03-12] MEDS: traMADol HCl 50 MG TAB PO PRN ×3 (01:23→18:34)
[2023-03-12] MEDS: Acetaminophen 500 MG TAB PO PRN (01:24)
[2023-03-12] MEDS ORDERED: Milk Of Magnesia 30 ML UDCUP PO SCH (07:15)
[2023-03-12] MEDS: Polyethylene Glycol 3350 17 GM Packet PO SCH ×2 (09:06→20:21)
[2023-03-12] MEDS: Senokot S 8.6-50 MG TAB PO SCH ×2 (09:09→20:21)
[2023-03-12] MEDS: Gabapentin 300 MG CAP PO SCH ×3 (09:09→20:21)
[2023-03-12] MEDS: Ibuprofen 600 MG TAB PO PRN ×2 (09:21→20:20)
[2023-03-12] MEDS ORDERED: Naloxegol 12.5 MG TAB PO SCH (14:30)
[2023-03-12 16:11] LABS: ALT (SGPT) 13 U/L (8-55); AST (SGOT) 13 U/L (5-34); Albumin 3.7 g/dL (3.5-5.0); Alkaline Phosphatase 82 U/L (40-110); Anion Gap 15 mmol/L (10-20); BUN (Urea Nitrogen) 8 mg/dL (7.0-18.7); Bilirubin, Total 0.2 mg/dL (0.2-1.2); Calc. Creatinine Clearance 296 mL/min (70-130); Carbon Dioxide 24 mmol/L (22-29); Chloride 104 mmol/L (98-107); Estimated GFR 114; Globulin 3.4 g/dL (2.4-3.5); Glucose 90 mg/dL (70-105); Lipase 10 U/L (8-78); Potassium 4.6 mmol/L (3.5-5.1); Protein, Total 7.1 g/dL (6.0-8.3); Sodium 138 mmol/L (136-145)
[2023-03-13 04:40] LABS: #Eosinphils 0.3 thou/uL (0.0-0.7); #Monocytes 0.5 thou/uL (0.11-0.59); #Neutrophils 6.3 thou/uL (1.40-6.50); %Basophils 0.2 % (0.0-1.0); %Eosinophils 3.1 % (0.0-10.0); %Lymphocytes 21.7 % (21.0-51.0); %Monocytes 5.2 % (0.0-10.0); %Neutrophils 69.6 % (42.0-75.0); Hematocrit 31.8 % (36.0-47.0); Hemoglobin 9.5 g/dL (12.0-16.0); Mean Corpuscular HGB CONC 29.9 g/dL (32.0-36.0); Mean Corpuscular Hemoglobin 21.3 pg (27.0-31.0); Mean Corpuscular Volume 71.3 fl (78.0-98.0); Mean Platelet Volume 10.5 fL (7.4-10.4); Platelet Count 339 10x3/uL (130-400); RBC Distribution Width 17.7 % (11.5-14.5); Red Blood Cell (RBC) Count 4.46 mill/uL (4.20-5.40); White Blood Cell (WBC) Count 9.1 10x3/uL (4.8-10.8)
[2023-03-13] MEDS: traMADol HCl 50 MG TAB PO PRN (04:42)
[2023-03-13] MEDS: Piperacillin/Tazobactam 3.375 GM in Sodium Chloride 0.9% 100 ML IVPB SCH (04:42)
[2023-03-13] MEDS: Bisacodyl 10 MG SUPP PR SCH (04:46)
[2023-03-13 05:10] LABS: ALT (SGPT) 13 U/L (8-55); AST (SGOT) 12 U/L (5-34); Albumin 3.4 g/dL (3.5-5.0); Alkaline Phosphatase 75 U/L (40-110); Anion Gap 15 mmol/L (10-20); BUN (Urea Nitrogen) 11 mg/dL (7.0-18.7); Bilirubin, Total 0.2 mg/dL (0.2-1.2); Calc. Creatinine Clearance 262 mL/min (70-130); Calcium 8.7 mg/dL (7.8-10.44); Carbon Dioxide 24 mmol/L (22-29); Chloride 105 mmol/L (98-107); Estimated GFR 111; Globulin 3.3 g/dL (2.4-3.5); Glucose 98 mg/dL (70-105); Lipase 11 U/L (8-78); Potassium 3.9 mmol/L (3.5-5.1); Protein, Total 6.7 g/dL (6.0-8.3); Sodium 140 mmol/L (136-145)
[2023-03-13] MEDS ORDERED: Fleet Saline Enema 133 ML BOT PR SCH (07:45)
[2023-03-13] MEDS ORDERED: Bisacodyl 5 MG TAB PO SCH (07:45)
[2023-03-13] MEDS ORDERED: Magnesium 2 GM/50 ML(in water) 2 GM in Premix Bag 1 BAG IVPB SCH (08:00)
[2023-03-13] MEDS: Polyethylene Glycol 3350 17 GM Packet PO SCH ×2 (08:05→21:06)
[2023-03-13] MEDS: Gabapentin 300 MG CAP PO SCH ×3 (08:05→21:06)
[2023-03-13] MEDS: Naloxegol 12.5 MG TAB PO SCH (08:05)
[2023-03-13] MEDS: Amoxicillin/Potassium Clav 875 MG TAB PO SCH ×2 (08:05→21:06)
[2023-03-13] MEDS: Acetaminophen 500 MG TAB PO PRN (09:39)
[2023-03-13] MEDS: Ibuprofen 600 MG TAB PO PRN ×2 (12:45→21:08)
[2023-03-13] MEDS ORDERED: Milk Of Magnesia 30 ML UDCUP PO SCH (14:15)
[2023-03-14] MEDS: Acetaminophen 500 MG TAB PO PRN ×2 (01:35→12:07)
[2023-03-14 04:49] LABS: #Eosinphils 0.3 thou/uL (0.0-0.7); #Monocytes 0.6 thou/uL (0.11-0.59); #Neutrophils 6.5 thou/uL (1.40-6.50); %Basophils 0.3 % (0.0-1.0); %Eosinophils 3.4 % (0.0-10.0); %Lymphocytes 21.9 % (21.0-51.0); %Monocytes 6.4 % (0.0-10.0); %Neutrophils 67.8 % (42.0-75.0); Hematocrit 31.9 % (36.0-47.0); Hemoglobin 9.7 g/dL (12.0-16.0); Mean Corpuscular HGB CONC 30.4 g/dL (32.0-36.0); Mean Corpuscular Hemoglobin 21.7 pg (27.0-31.0); Mean Corpuscular Volume 71.5 fl (78.0-98.0); Mean Platelet Volume 10.4 fL (7.4-10.4); Platelet Count 356 10x3/uL (130-400); Red Blood Cell (RBC) Count 4.46 mill/uL (4.20-5.40); White Blood Cell (WBC) Count 9.6 10x3/uL (4.8-10.8)
[2023-03-14 05:34] LABS: Anisocytosis SLIGHT = 6-15 cells HPF (0-5); CellaVision Operator ID lab.sh2; Hypochromia SLIGHT = 6-15 cells HPF (0-5); Microcytosis SLIGHT = 6-15 cells HPF (0-5); Ovalocytes SLIGHT = 2-5 cells HPF (0-1); Platelet Adequacy Comment Platelets Normal; Polychromasia SLIGHT = 2-3 cells HPF (0-2); Smudge Cells 16.8 %; Stomatocytes SLIGHT = 2-5 cells HPF (0-1)
[2023-03-14 07:20] LABS: Calcium 8.8 mg/dL (7.8-10.44); Chloride 107 mmol/L (98-107); Glucose 100 mg/dL (70-105); Potassium 3.9 mmol/L (3.5-5.1); Protein, Total 6.8 g/dL (6.0-8.3); Sodium 139 mmol/L (136-145)
[2023-03-14 07:21] LABS: ALT (SGPT) 15 U/L (8-55); AST (SGOT) 11 U/L (5-34); Alkaline Phosphatase 78 U/L (40-110); Anion Gap 9 mmol/L (10-20); BUN (Urea Nitrogen) 8 mg/dL (7.0-18.7); Bilirubin, Total 0.2 mg/dL (0.2-1.2); Calc. Creatinine Clearance 292 mL/min (70-130); Carbon Dioxide 27 mmol/L (22-29); Estimated GFR 114; Globulin 3.4 g/dL (2.4-3.5); Magnesium 2.2 mg/dL (1.6-2.6)
[2023-03-14 08:35] LABS: Albumin 3.4 g/dL (3.5-5.0)
[2023-03-14] MEDS: Gabapentin 300 MG CAP PO SCH ×2 (08:58→16:54)
[2023-03-14] MEDS: Naloxegol 12.5 MG TAB PO SCH (08:59)
[2023-03-14] MEDS: Amoxicillin/Potassium Clav 875 MG TAB PO SCH (08:59)
[2023-03-14] MEDS: Polyethylene Glycol 3350 17 GM Packet PO SCH (09:00)
[2023-03-14 16:19] VITALS: BP 145/68; TEMP 97.7
== END 2023-03-14 18:00 | disposition home or self-care (01) | DRG 871 ==
LOC: ERS 13:31 → ERHOLD 23:00 → 2SW 02-25 07:42 → OBSVTOIN 02-26 15:11 → T4-A 03-13 14:57 → 2SW 03-13 14:59
PROVIDERS: ADMIT Internal Medicine Nephrology; ATTEND Family Medicine
PROC: 3E03329 Introduction of Other Anti-infective into Peripheral Vein, Percutaneous Approach (ICD-10-PCS; 2023-02-24)
PROC: 4A043R1 Measurement of Venous Saturation, Peripheral, Percutaneous Approach (ICD-10-PCS; 2023-02-25)
PROC: 0DJ08ZZ Inspection of Upper Intestinal Tract, Via Natural or Artificial Opening Endoscopic (ICD-10-PCS; principal; 2023-03-02)
DX: A40.8 Other streptococcal sepsis (principal); K65.1 Peritoneal abscess; N39.0 Urinary tract infection, site not specified; Z68.44 Body mass index [BMI] 60.0-69.9, adult; I10 Essential (primary) hypertension; E78.5 Hyperlipidemia, unspecified; Z20.822 Contact with and (suspected) exposure to COVID-19; D50.9 Iron deficiency anemia, unspecified; E87.6 Hypokalemia; R30.0 Dysuria; M79.89 Other specified soft tissue disorders; R00.1 Bradycardia, unspecified; R16.0 Hepatomegaly, not elsewhere classified; K43.9 Ventral hernia without obstruction or gangrene; K59.00 Constipation, unspecified; R19.7 Diarrhea, unspecified; Z98.890 Other specified postprocedural states; Z90.49 Acquired absence of other specified parts of digestive tract; Z86.73 Personal history of transient ischemic attack (TIA), and cerebral infarction without residual deficits; E66.01 Morbid (severe) obesity due to excess calories; K76.0 Fatty (change of) liver, not elsewhere classified; I08.1 Rheumatic disorders of both mitral and tricuspid valves
CPT/HCPCS: 36415; 70450; 71045; 71275; 74018; 74019; 74177; 74178; 78452; 80048; 80053; 80076; 81001; 82728; 82805; 83036; 83540; 83550; 83605; 83630; 83690; 83735; 83930; 84443; 84484; 84703; 85025; 85610; 85730; 86140; 86850; 86900; 86901; 87040; 87077; 87086; 87186; 87324; 87449; 87505; 93005; 93010; 93017; 93306; 93970; 96365; 96366; 96367; 96372; 96375; 96376; A9500; C9113; G0378; J0692; J1650; J1885; J2270; J2405; J2543; J2704; J2785; J3370; J3370-JW; J3475; J3480; J3490; J7120; Q0162; Q9967